=== PATIENT | female | born 1985 | race African-American/Black ===

== ENCOUNTER 2023-01-28 22:46 | Emergency (ER) | payer OTHER ==
[~2023-01-28] VITALS: Ht 154.9 cm; Wt 106.0 kg
[2023-01-29 01:15] VITALS: BP 224/143
[2023-01-29] MEDS ORDERED: DEXAMETHASONE 10 MG/ML VIAL IM ONE (01:15)
[2023-01-29] MEDS ORDERED: TETRACAINE 0.5% OPHTH DROPS 4ML RIGHTEYE ONE (01:15)
[2023-01-29] MEDS ORDERED: FLUORESCEIN SODIUM 1MG/STRIP RIGHTEYE ONE (01:15)
[2023-01-29] MEDS ORDERED: KETOROLAC 60MG/2ML VIAL IM ONE (01:15)
[2023-01-29] MEDS ORDERED: CETI10CA2 MT (01:45)
== END 2023-01-29 01:58 | disposition home or self-care (01) ==
LOC: ER 22:46
DX: H10.9 Unspecified conjunctivitis (principal); I10 Essential (primary) hypertension; J02.9 Acute pharyngitis, unspecified
CPT/HCPCS: 81025; 96372; 99284; J1100; J1885; Z7610